=== PATIENT | male | born 1960 ===

== ENCOUNTER 2019-06-26 19:01 | Inpatient (IN) | payer MEDICARE ==
[2019-06-26 20:09] LABS: Calcium 9.3 mg/dL (8.4-10.2)
[2019-06-26 20:10] LABS: Basophils # (Auto) 0.1 K/mm3 (0.0-0.1); Basophils % (Auto) 0.7 % (0.0-1.8); Eosinophils # (Auto) 0.1 K/mm3 (0.0-0.4); Eosinophils % (Auto) 0.9 % (0.0-4.3); Hematocrit 33.5 % (35.5-45.6); Hemoglobin 11.5 gm/dl (11.8-15.2); Lymphocytes # (Auto) 1.1 K/mm3 (1.2-5.4); Mean Corpuscular HGB Conc 34 % (32-34); Mean Corpuscular Volume 97 fl (84-94); Monocytes # (Auto) 0.9 K/mm3 (0.0-0.8); Monocytes % (Auto) 12.2 % (0.0-7.3); Platelet Count 183 K/mm3 (140-440); Red Blood Count 3.45 M/mm3 (3.65-5.03); Red Cell Distribution Width 13.9 % (13.2-15.2)
[2019-06-26] MEDS ORDERED: SODIUM CHLORIDE 0.9% 1000 ML 1,000 ML IV ONE (20:23)
--- NOTE | 2019-06-26 21:02 | Emergency Department Report ---
ED Recheck HPI - General Chief Complaint: Recheck/Abnormal Lab/Rx Stated Complaint: LABS Time Seen by Provider: 06/26/19 20:08 Source: patient, EMS Mode of arrival: Stretcher Limitations: No Limitations - History of Present Illness Initial Comments: 59-year-old male with history of schizophrenia, bipolar disorder, enlarged liver, COPD, presents from [facility] today for abnormal labs. Patient reportedly had elevated potassium on labs that were done yesterday. Patient denies any history of kidney disease. Patient is currently at [facility] for suicidal ideation without attempt. MD Complaint: abnormal lab -: days(s) (1) Returns Today for: CBOAL Description of Abnormal Result: elevated potassium Associated Symptoms: none. denies: shortness of breath - Related Data Home Medications Medication Instructions Recorded Confirmed Last Taken ALPRAZolam [Xanax TAB] 1 mg PO DAILY 06/27/19 06/27/19 Unknown Escitalopram [Lexapro] 20 mg PO DAILY 06/27/19 06/27/19 Unknown Finasteride 5 mg PO DAILY 06/27/19 06/27/19 Unknown Ibuprofen [Motrin] 600 mg PO Q8H PRN 06/27/19 06/27/19 Unknown Losartan [Cozaar] 50 mg PO QDAY 06/27/19 06/27/19 Unknown Tamsulosin [Flomax] 0.4 mg PO DAILY 06/27/19 06/27/19 Unknown oxyCODONE [roxiCODONE] 5 mg PO Q4HR PRN 06/27/19 06/27/19 Unknown Allergies Allergy/AdvReac Type Severity Reaction Status Date / Time No Known Allergies Allergy Unverified 06/26/19 19:06 ED Review of Systems ROS: Stated complaint: LABS Other details as noted in HPI Comment: All other systems reviewed and negative Constitutional: denies: fever Respiratory: denies: shortness of breath Gastrointestinal: denies: nausea, vomiting ED Past Medical Hx - Past Medical History Previous Medical History?: Yes Hx Hypertension: Yes Hx Diabetes: Yes Hx Liver Disease: Yes (Hep B and C) Hx Psychiatric Treatment: Yes (schizophrenia, bipolar, depression) Hx COPD: Yes Additional medical history: parkinsons, prostate cancer, OA, fused vertebra, - Surgical History Past Surgical History?: Yes Additional Surgical History: spinal fusion - Social History Smoking Status: Current Every Day Smoker - Medications Home Medications: Home Medications Medication Instructions Recorded Confirmed Last Taken Type ALPRAZolam [Xanax TAB] 1 mg PO DAILY 06/27/19 06/27/19 Unknown History Escitalopram [Lexapro] 20 mg PO DAILY 06/27/19 06/27/19 Unknown History Finasteride 5 mg PO DAILY 06/27/19 06/27/19 Unknown History Ibuprofen [Motrin] 600 mg PO Q8H PRN 06/27/19 06/27/19 Unknown History Losartan [Cozaar] 50 mg PO QDAY 06/27/19 06/27/19 Unknown History Tamsulosin [Flomax] 0.4 mg PO DAILY 06/27/19 06/27/19 Unknown History oxyCODONE [roxiCODONE] 5 mg PO Q4HR PRN 06/27/19 06/27/19 Unknown History ED Physical Exam - General Limitations: No Limitations General appearance: alert, in no apparent distress - Head Head exam: Present: atraumatic, normocephalic - Eye Eye exam: Present: normal appearance - ENT ENT exam: Present: mucous membranes moist - Neck Neck exam: Present: other (webbed-neck appearance) - Respiratory Respiratory exam: Present: normal lung sounds bilaterally. Absent: respiratory distress - Cardiovascular Cardiovascular Exam: Present: regular rate, normal rhythm - GI/Abdominal GI/Abdominal exam: Present: soft. Absent: distended - Extremities Exam Extremities exam: Present: normal inspection, other (trace edema BLE) - Neurological Exam Neurological exam: Present: alert, oriented X3 - Psychiatric Psychiatric exam: Present: normal affect, normal mood - Skin Skin exam: Present: warm, dry, intact, normal color ED Course - Consultations Consultation #1: 06/26/19 21:29 Spoke w/ Dr Delgadillo, car body mechanic. He will consult on patient. ED Recheck MDM - Differential Diagnosis hyperkalemia, ARF - Medical Decision Making 59 yo M sent to ED from [facility] for elevated hyperkalemia. Potassium here is 5.3, 5.5 on repeat. Pt also has some renal insufficiency with BUN and Cr of 42 and 1.4. IV fluids given. Hyperkalemia treatment given. EKG is normal. Nephrology has been consulted. Will admit to hospitalist for further evaluation. Critical Care Time: Yes Critical care time in (mins) excluding proc time.: 35 Critical care attestation.: If time is entered above; I have spent that time in minutes in the direct care of this critically ill patient, excluding procedure time. Critical Care Time: 35 minutes ED Disposition Clinical Impression: Acute renal failure, Hyperkalemia Disposition: OP ADMIT IP TO THIS HOSP Is pt being admited?: Yes Condition: Stable Time of Disposition: 21:27
[2019-06-26] MEDS ORDERED: DEXTROSE 50% IN WATER (25GM) 50 ML SYRINGE IV ONE (21:25)
[2019-06-26] MEDS ORDERED: INSULIN REGULAR, HUMAN 100 UNITS/1 ML IV ONE (21:25)
[2019-06-26] MEDS ORDERED: SODIUM POLYSTYRENE 15 GM/60 ML ORAL LIQD PO ONE (21:26)
[2019-06-26] MEDS ORDERED: CALCIUM GLUCONATE 1,000 MG in SODIUM CHLORIDE 0.9% 100 ML IV ONE (21:26)
[2019-06-26] MEDS ORDERED: ACETAMINOPHEN 325 MG TAB PO PRN (22:21)
[2019-06-26] MEDS ORDERED: DEXTROSE 50% IN WATER (25GM) 50 ML SYRINGE IV PRN (22:21)
[2019-06-26] MEDS ORDERED: ONDANSETRON 4 MG/2 ML INJ IV PRN (22:21)
--- NOTE | 2019-06-26 22:24 | History and Physical Report ---
History of Present Illness Date of examination: 06/26/19 History of present illness: 59 -year-old man history of COPD, Parkinson's, prostate cancer, hypertension, diabetes, paranoid schizophrenia, hyperlipidemia, JACKIE was sent from [facility] for abnormal labs. His potassium was found to be elevated and also his renal funct ion. Patient has been at [facility] for the last 2 weeks for suicidal ideations, he still has suicidal ideations but no plans Review Of Systems: Constitutional: no weight loss, fever, chills Ears, eyes, nose, mouth and throat: no nasal congestion, no nasal discharge, no sinus pressure, blurry vision, diplopia Neck: No neck pain or rigidity. Cardiovascular: No palpitations, chest pain Respiratory: No shortness of breath, cough Gastrointestinal: No hematochezia, abdominal pain Genitourinary : no dysuria, frequency Musculoskeletal: no muscle ache , joint pain Integumentary: no rash, no pruritis Neurological: no parathesias, focal weakness Endocrine: no cold or heat intolerance, no polyuria or polydipsia Hematologic/Lymphatic: no easy bruising, no easy bleeding, no gland swelling Allergic/Immunologic: no urticaria, no angioedema. PAST MEDICAL HISTORY: COPD, Parkinson's, prostate cancer, hypertension, diabetes, paranoid schizophrenia, hyperlipidemia, JACKIE PAST SURGICAL HISTORY: Spinal fusion, knee SOCIAL HISTORY: Denies alcohol, tobacco, drugs FAMILY HISTORY: Hypertension Medications and Allergies Allergies Allergy/AdvReac Type Severity Reaction Status Date / Time No Known Allergies Allergy Unverified 06/26/19 19:06 Home Medications Medication Instructions Recorded Confirmed Last Taken Type ALPRAZolam [Xanax TAB] 1 mg PO DAILY 06/27/19 06/27/19 Unknown History Escitalopram [Lexapro] 20 mg PO DAILY 06/27/19 06/27/19 Unknown History Finasteride 5 mg PO DAILY 06/27/19 06/27/19 Unknown History Losartan [Cozaar] 50 mg PO QDAY 06/27/19 06/27/19 Unknown History Tamsulosin [Flomax] 0.4 mg PO DAILY 06/27/19 06/27/19 Unknown History oxyCODONE [roxiCODONE] 5 mg PO Q4HR PRN 06/27/19 06/27/19 Unknown History Exam - Physical Exam Narrative exam: Gen. appearance: Patient lying in bed, no apparent distress HEENT: Normocephalic, atraumatic, pupils equally round and reactive to light, extraocular movement intact, and no sclericterus,. No JVD or thyromegaly or nodule,neck supple, no carotid bruit ,mucous membranes moist, no exudate or erythema Heart: S1, S2, regular rate and rhythm Lungs: Clear bilaterally, breathing comfortable Abdomen: Positive bowel sounds, nontender, nondistended, no organomegaly Extremity: no edema, cyanosis, clubbing Skin: No rash, nodules, warm, dry Neuro: speech is fluent, moves extremities, sensory intact Results - Labs CBC & Chem 7: 06/28/19 09:13 06/28/19 06:09 Labs: Abnormal lab results 06/26/19 06/26/19 06/26/19 Range/Units 19:43 19:43 20:45 RBC 3.45 L (3.65-5.03) M/mm3 Hgb 11.5 L (11.8-15.2) gm/dl Hct 33.5 L (35.5-45.6) % MCV 97 H (84-94) fl MCH 33 H (28-32) pg [place] % (Auto) 12.2 H (0.0-7.3) % Lymph # 1.1 L (1.2-5.4) K/mm3 [place] # 0.9 H (0.0-0.8) K/mm3 Seg Neutrophils % 71.2 H (40.0-70.0) % Potassium 5.3 H 5.5 H (3.6-5.0) mmol/L BUN 42 H (9-20) mg/dL Glucose 109 H (75-100) mg/dL Assessment and Plan Assessment Acute renal insufficiency/hyperkalemia most likely secondary to meds Status post cocktail for hyperkalemia Start IV fluids, follow potassium Renal was consulted to the patient COPD, Stable Diabetes Check fingersticks and initiate insulin sliding scale Restart his medications once reconciled Hypertension IV hydralazine as needed for control Restart outpatient medications Schizophrenia, bipolar stable
[2019-06-27] MEDS: SODIUM CHLORIDE 0.45% 1000 ML 1,000 ML IV SCH ×2 (03:16→22:48)
[2019-06-27 06:16] LABS: Basophils % (Auto) 0.4 % (0.0-1.8); Eosinophils % (Auto) 0.2 % (0.0-4.3); Hematocrit 30.6 % (35.5-45.6); Hemoglobin 10.5 gm/dl (11.8-15.2); Lymphocytes # (Auto) 0.8 K/mm3 (1.2-5.4); Lymphocytes % (Auto) 12.9 % (13.4-35.0); Mean Corpuscular HGB Conc 34 % (32-34); Mean Corpuscular Volume 98 fl (84-94); Monocytes # (Auto) 0.8 K/mm3 (0.0-0.8); Monocytes % (Auto) 12.5 % (0.0-7.3); Platelet Count 159 K/mm3 (140-440); Red Blood Count 3.14 M/mm3 (3.65-5.03); Red Cell Distribution Width 13.8 % (13.2-15.2)
[2019-06-27 06:30] LABS: BUN/Creatinine Ratio 32; Blood Urea Nitrogen 35 mg/dL (9-20); Hemolysis Index 0
[2019-06-27] MEDS: INSULIN LISPRO 100 UNIT/ML SUB-Q SCH ×3 (08:54→17:36)
[2019-06-27] MEDS: ENOXAPARIN 40 MG/0.4 ML INJ SUB-Q SCH (09:53)
[2019-06-27] MEDS ORDERED: FLU VACC QUAD 2019-20 (3 YR UP)/PF 60 MCG/0.5 ML SYRINGE IM ONE (12:00)
--- NOTE | 2019-06-27 18:04 | Progress Note ---
Assessment and Plan Assessment and plan: Patient is 59 yo man from [facility] with a history of COPD, Parkinson's, prostate cancer, hypertension, diabetes, paranoid schizophrenia, hyperlipidemia and JACKIE was sent from [facility] for abnormal labs. His potassium was found to be mildly elevated and also his renal function. Patient has been at [facility] for the last 2 weeks for suicidal ideations, he still has suicidal ideations but no plans. ARF, vasomotor nephropathy, poa: treated with IVF, recheck bmp Hyperkalemia: treated with kayexalate, repeat levels H/o COPD, Stable Type 2 DM: Check fingersticks and initiate insulin sliding scale Hypertension: low salt diet, IV hydralazine as needed for control Schizophrenia, bipolar stable, SI: 1013, consulted Mental health DVT ppx on lovenox Disposition: continue inpatient care, if bmp stable d/c back to [facility] tomorrow History Interval history: Patient was seen and examined. Follow-up on current diagnosis ARF. No overnight events reported to me. Patient denies any chest pain, shortness breath, nausea/vomiting or severe headaches. Imaging, nursing note, chart, labs and old chart reviewed. Discussed with patient. Hospitalist Physical - Physical exam Narrative exam: Gen: WDWN, NAD, Awake, Alert, Orientated HEENT: NCAT, EOMI, PERRL, OP Clear Neck:>fused neck CVS/Heart: RRR, normal S1S2, pulses present bilaterally Chest/Lungs: CTA B, Symmetrical chest expansion, good air entry bilaterally GI/Abdomen: soft, NTND, good bowel sounds, no guarding or rebound /Bladder: no suprapubic tenderness, no CVA or paraspinal tenderness Extermity/Skin: no c/c/e, no obvious rash MSK: FROM x 4 Neuro: CN 2-12 grossly intact, no new focal deficits Psych: calm - Constitutional Vitals: Temp Pulse Resp BP Pulse Ox 98.1 F 73 18 130/71 95 06/27/19 17:31 06/27/19 17:31 06/27/19 17:31 06/27/19 17:31 06/27/19 17:31 Results - Labs CBC & Chem 7: 06/27/19 05:49 06/27/19 05:49 Labs: Laboratory Last Values WBC 6.4 K/mm3 (4.5-11.0) 06/27/19 05:49 RBC 3.14 M/mm3 (3.65-5.03) L 06/27/19 05:49 Hgb 10.5 gm/dl (11.8-15.2) L 06/27/19 05:49 Hct 30.6 % (35.5-45.6) L 06/27/19 05:49 MCV 98 fl (84-94) H 06/27/19 05:49 MCH 34 pg (28-32) H 06/27/19 05:49 MCHC 34 % (32-34) 06/27/19 05:49 RDW 13.8 % (13.2-15.2) 06/27/19 05:49 Plt Count 159 K/mm3 (140-440) 06/27/19 05:49 Lymph % (Auto) 12.9 % (13.4-35.0) L 06/27/19 05:49 [place] % (Auto) 12.5 % (0.0-7.3) H 06/27/19 05:49 Eos % (Auto) 0.2 % (0.0-4.3) 06/27/19 05:49 Baso % (Auto) 0.4 % (0.0-1.8) 06/27/19 05:49 Lymph # 0.8 K/mm3 (1.2-5.4) L 06/27/19 05:49 [place] # 0.8 K/mm3 (0.0-0.8) 06/27/19 05:49 Eos # 0.0 K/mm3 (0.0-0.4) 06/27/19 05:49 Baso # 0.0 K/mm3 (0.0-0.1) 06/27/19 05:49 Seg Neutrophils % 74.0 % (40.0-70.0) H 06/27/19 05:49 Seg Neutrophils # 4.7 K/mm3 (1.8-7.7) 06/27/19 05:49 Sodium 140 mmol/L (137-145) 06/27/19 05:49 Potassium 4.8 mmol/L (3.6-5.0) 06/27/19 05:49 Chloride 106.4 mmol/L (98-107) 06/27/19 05:49 Carbon Dioxide 20 mmol/L (22-30) L 06/27/19 05:49 Anion Gap 18 mmol/L 06/27/19 05:49 BUN 35 mg/dL (9-20) H 06/27/19 05:49 Creatinine 1.1 mg/dL (0.8-1.5) 06/27/19 05:49 Estimated GFR > 60 ml/min 06/27/19 05:49 BUN/Creatinine Ratio 32 % 06/27/19 05:49 Glucose 96 mg/dL (75-100) 06/27/19 05:49 POC Glucose 107 (70-105) H 06/27/19 16:41 Calcium 9.0 mg/dL (8.4-10.2) 06/27/19 05:49 Total Bilirubin 0.20 mg/dL (0.1-1.2) 06/26/19 19:43 AST 33 units/L (5-40) 06/26/19 19:43 ALT 30 units/L (7-56) 06/26/19 19:43 Alkaline Phosphatase 43 units/L (35-129) 06/26/19 19:43 Total Protein 6.9 g/dL (6.3-8.2) 06/26/19 19:43 Albumin 4.0 g/dL (3.9-5) 06/26/19 19:43 Albumin/Globulin Ratio 1.4 % 06/26/19 19:43 Active Medications - Current Medications Current Medications: Generic Name Dose Route Start Last Admin Trade Name Freq PRN Reason Stop Dose Admin Acetaminophen 650 mg 06/26/19 22:21 Tylenol PO Q4H PRN Pain MILD(1-3)/Fever >100.5/ARANDA Dextrose 0 ml 06/26/19 22:21 D50w (25gm) Syringe IV Q30MIN PRN Hypoglycemia Protocol Enoxaparin Sodium 40 mg 06/27/19 10:00 06/27/19 09:53 Enoxaparin SUB-Q 40 mg QDAY DELIA Administration Sodium Chloride 1,000 mls @ 100 mls/hr 06/26/19 23:00 06/27/19 03:16 Nacl 0.45% 1000 Ml IV 100 mls/hr DIRECT DELIA Administration Insulin Human Lispro 0 unit 06/27/19 07:30 06/27/19 17:36 Humalog SUB-Q Not Given ACHS [facility] Protocol Ondansetron HCl 4 mg 06/26/19 22:21 Zofran IV Q8H PRN Nausea And Vomiting Sodium Chloride 10 ml 06/27/19 10:00 06/27/19 09:53 Sodium Chloride Flush Syringe 10 Ml IV 10 ml BID DELIA Administration Sodium Chloride 10 ml 06/26/19 22:21 Sodium Chloride Flush Syringe 10 Ml IV PRN PRN LINE FLUSH Nutrition/Malnutrition Assess - Dietary Evaluation Nutrition/Malnutrition Findings: Nutrition Notes Start: 06/27/19 11:33 Freq: Status: Active Protocol: Document 06/27/19 11:33 PS (Rec: 06/27/19 12:16 PS [email or web address]) Co-Sign 06/27/19 11:33 KH Nutrition Notes Need for Assessment generated from: MD Order Initial or Follow up Assessment Current Diagnosis COPD,Diabetes,Hypertension, Hyperlipidemia Other Pertinent Diagnosis Parkinsons, schizophrenia Current Diet Cardiac/Consistent Carbohydrate Diet Labs/Tests BUN 35 Pertinent Medications Zofran Humalog Height 5 ft 4 in Weight 69.5 kg Usual Body Weight 100 kg [place] Body Weight (kg) 59.09 BMI 26.3 Intake Prior to Admission Poor Weight change and time frame 69 lbs in 3 months Weight Status Appropriate Subjective/Other Information Pt consulted for poor oral intake and ONS. Pt. stated he has been eating 50% of his normal diet for 3 months COLLATOR d /t limitied food access in household. Pt. presented with clavical wasting. Pt. ate 50% of his breakfast and drank 100 % of his glucerna chocolate shake. Burn Absent Trauma Absent GI Symptoms None Current % PO Fair (50-74%) Minimum of two criteria Yes Energy Intake (severe) < or equal to 50% Estimated Energy Requirement > or equal to 5 days Interpretation of Weight Loss (severe) >7.5% in 3 months Muscle Mass Mild Depletion (non-severe) #1 Nutrition Diagnosis Malnutrition Etiology limited food access and Parkinsons As Evidenced by Signs and Symptoms < or equal to 50% of EER for > or equal to 5 days, clavical wasting, and >7.5% wt loss in 3 months Is patient on ventilator? No Is Patient Ambulatory and/or Out of Bed Yes REE-([place]-St. Jeor-ambulatory/OOB) [ 1840.800 [id number]] Calculation Used for Recommendations Pauline Velasquez Additional Notes Pro: 83 - 104 g (1.2-1.5 g/kg) Fluid: 1 ml/kcal Nutrition Intervention Change Diet Order: Continue Current Diet Add Supplement/Snack (indicate name/kcal Glucerna Chocolate BID /protein ) Provides kCal: 440 Provides Protein (gm) 20 Goal #1 Meet 75% energy/protein needs Anticipated Discharge Needs: Cardiac/Consistent CHO Diet Follow-Up By: 07/02/19 Additional Comments F/U for PO/ONS intakes
--- NOTE | 2019-06-27 19:13 | Consultation ---
History of Present Illness - Reason for Consult Consult date: 06/27/19 acute renal failure, hyperkalemia Requesting physician: TIFFANIE [facility] - History of Present Illness 59 -year-old man history of COPD, Parkinson's, prostate cancer, hypertension, diabetes, paranoid schizophrenia, hyperlipidemia, obstructive sleep apnea syndrome was sent from [facility] [facility] for abnormal labs. His potassium was found to be elevated and kidney function abnormal. Patient has been at [facility] for the last 2 weeks for suicidal ideations, he still has suicidal ideations but no plans. Patient admits to nausea vomiting and diarrhea. He is a poor historian. Patient was on ibuprofen and losartan prior to admission. Past History Past Medical History: cancer (prostate), hepatitis (B and C per Patient), hypertension, other (anxiety and depression, Parkinson disease) Past Surgical History: appendectomy, Other (knee surgery, tibiofibular surgery) Social history: smoking (1 pack per day). denies: alcohol abuse, prescription drug abuse, IV drug use Family history: other (father in a motor vehicle accident. Mother of pulmonary embolism. He has no siblings only stepsiblings and he does not know of their medical problems.) Medications and Allergies Allergies Allergy/AdvReac Type Severity Reaction Status Date / Time No Known Allergies Allergy Unverified 06/26/19 19:06 Home Medications Medication Instructions Recorded Confirmed Last Taken Type ALPRAZolam [Xanax TAB] 1 mg PO DAILY 06/27/19 06/27/19 Unknown History Escitalopram [Lexapro] 20 mg PO DAILY 06/27/19 06/27/19 Unknown History Finasteride 5 mg PO DAILY 06/27/19 06/27/19 Unknown History Ibuprofen [Motrin] 600 mg PO Q8H PRN 06/27/19 06/27/19 Unknown History Losartan [Cozaar] 50 mg PO QDAY 06/27/19 06/27/19 Unknown History Tamsulosin [Flomax] 0.4 mg PO DAILY 06/27/19 06/27/19 Unknown History oxyCODONE [roxiCODONE] 5 mg PO Q4HR PRN 06/27/19 06/27/19 Unknown History Active Meds: Active Medications Acetaminophen (Tylenol) 650 mg PO Q4H PRN PRN Reason: Pain MILD(1-3)/Fever >100.5/ARANDA Dextrose (D50w (25gm) Syringe) 0 ml IV Q30MIN PRN; Protocol PRN Reason: Hypoglycemia Enoxaparin Sodium (Enoxaparin) 40 mg SUB-Q QDAY [facility] Last Admin: 06/27/19 09:53 Dose: 40 mg Documented by: Sodium Chloride (Nacl 0.45% 1000 Ml) 1,000 mls @ 100 mls/hr IV DIRECT [facility] Last Admin: 06/27/19 03:16 Dose: 100 mls/hr Documented by: Insulin Human Lispro (Humalog) 0 unit SUB-Q ACHS [facility]; Protocol Last Admin: 06/27/19 17:36 Dose: Not Given Documented by: Ondansetron HCl (Zofran) 4 mg IV Q8H PRN PRN Reason: Nausea And Vomiting Sodium Chloride (Sodium Chloride Flush Syringe 10 Ml) 10 ml IV BID [facility] Last Admin: 06/27/19 09:53 Dose: 10 ml Documented by: Sodium Chloride (Sodium Chloride Flush Syringe 10 Ml) 10 ml IV PRN PRN PRN Reason: LINE FLUSH Review of Systems All systems: negative (Constitutional: no fever but admits to chills. No anorexia or weight loss. HEENT: No sore throat but admits to sinus drainage no hearing or vision impairment . Cardiovascular: No chest pain, admits to shortness of breath. No palpitations, lower extremity swelling or dizziness. Respiratory: cough productive of greenish sputum, shortness of breath, hemoptysis or wheezing. Gastrointestinal: Admits to nausea, vomiting and di arrhea, abdominal pain, hematemesis or melena. Genitourinary: Admits to urinary frequency and urge incontinence, no dysuria or hematuria. hematologic: No abnormal bleeding or bruising. Integumentary: no pruritus or rash. Neurological: Admits to occasional headache no focal weakness or numbness, no syncope or seizures. Musculoskeletal: No joint pains no stiffness. Psychiatry: no anxiety or depression) Exam - Vital Signs Vital signs: Vital Signs Temp Pulse Resp BP Pulse Ox 98.6 F 95 H 18 121/54 90 06/27/19 02:04 06/27/19 02:04 06/27/19 02:04 06/27/19 02:04 06/27/19 02:04 - Physical Exam Narrative exam: Middle-aged male lying in bed in no acute distress HEENT: NCAT, pink oral mucous membrane Neck: Supple, no venous distention CVS: S1S2 RRR with no murmur, rub or gallop Chest: Increased anterior posterior diameter, mildly diminished breath sounds with rhonchi Abdomen: Protuberant, soft, nontender, no organomegaly, bowel sounds are present Extremities: No edema Neuro: Awake, alert no focal deficits Results - Lab Results 06/27/19 05:49 06/27/19 05:49 Most recent lab results Calcium 9.0 mg/dL (8.4-10.2) 06/27/19 05:49 Assessment and Plan - Patient Problems (1) Acute renal failure Current Visit: Yes Status: Acute Plan to address problem: Acute kidney injury probably prerenal azotemia/vasomotor nephropathy. Kidney function improving with volume repletion. Continue intravenous fluids and follow up electrolytes and renal function in the morning. (2) Hyperkalemia Current Visit: Yes Status: Acute Plan to address problem: Potassium is improved. Follow potassium in the morning (3) Essential (primary) hypertension Current Visit: Yes Status: Acute Plan to address problem: Blood Pressure is low. Hold angiotensin receptor dmitriy. If blood pressure becomes elevated, we started low-dose Norvasc or hydralazine. (4) Type 2 diabetes mellitus without complications Current Visit: Yes Status: Acute Plan to address problem: Follow blood sugar on current medications (5) Schizoaffective disorder Current Visit: Yes Status: Acute Plan to address problem: Continue management by psychiatry
[2019-06-28] MEDS ORDERED: diphenhydrAMINE 25 MG CAP PO ONE (02:04)
[2019-06-28] MEDS: INSULIN LISPRO 100 UNIT/ML SUB-Q SCH ×2 (02:47→09:47)
[2019-06-28 05:40] VITALS: BP 133/58
[2019-06-28 06:53] LABS: BUN/Creatinine Ratio 20; Blood Urea Nitrogen 22 mg/dL (9-20); Calcium 8.8 mg/dL (8.4-10.2); Hemolysis Index 5
[2019-06-28 10:20] LABS: Hematocrit 36.2 % (35.5-45.6); Hemoglobin 12.5 gm/dl (11.8-15.2); Mean Corpuscular HGB Conc 35 % (32-34); Mean Corpuscular Volume 99 fl (84-94); Platelet Count 191 K/mm3 (140-440); Red Blood Count 3.67 M/mm3 (3.65-5.03)
--- NOTE | 2019-06-28 11:05 | Progress Note ---
Assessment and Plan - Patient Problems (1) Acute renal failure Status: Acute Plan to address problem: Acute kidney injury probably prerenal azotemia/vasomotor nephropathy. Kidney function improved with volume repletion. Discontinue intravenous fluids. Okay to discharge from renal standpoint. Avoid NSAIDs (2) Hyperkalemia Status: Acute Plan to address problem: Potassium is back to normal. (3) Essential (primary) hypertension Status: Acute Plan to address problem: Follow-up blood pressure on current medications (4) Type 2 diabetes mellitus without complications Status: Acute Plan to address problem: Follow blood sugar on current medications (5) Schizoaffective disorder Status: Acute Plan to address problem: Continue management by psychiatry Subjective Date of service: 06/28/19 Principal diagnosis: acute kidney injury, hyperkalemia Interval history: Patient seen lying in bed. He has no complaints. No nausea or vomiting Objective - Exam Narrative Exam: Middle-aged male lying in bed in no acute distress HEENT: NCAT, pink oral mucous membrane Neck: Supple, no venous distention CVS: S1S2 RRR with no murmur, rub or gallop Chest: Increased anterior posterior diameter, mildly diminished breath sounds with rhonchi Abdomen: Protuberant, soft, nontender, no organomegaly, bowel sounds are present Extremities: No edema Neuro: Awake, alert no focal deficits - Vital Signs Vital signs: Vital Signs - 12hr 06/27/19 06/28/19 06/28/19 23:21 03:19 05:00 Temperature 98.8 F 97.4 F L Pulse Rate 92 H 83 Respiratory 20 20 Rate Blood Pressure 134/66 Blood Pressure 133/58 [Left] Blood Pressure 133/58 [Right] O2 Sat by Pulse 97 Oximetry 06/28/19 06/28/19 05:38 09:22 Temperature 97.4 F L Pulse Rate 87 Respiratory 20 Rate Blood Pressure 133/58 Blood Pressure [Left] Blood Pressure [Right] O2 Sat by Pulse Oximetry - Lab 06/28/19 09:13 06/28/19 06:09 Most recent lab results Calcium 8.8 mg/dL (8.4-10.2) 06/28/19 06:09 Medications & Allergies - Medications Allergies/Adverse Reactions: Allergies No Known Allergies Allergy (Unverified 06/26/19 19:06) Home Medications: Home Medications Medication Instructions Recorded Confirmed Last Taken Type ALPRAZolam [Xanax TAB] 1 mg PO DAILY 06/27/19 06/27/19 Unknown History Escitalopram [Lexapro] 20 mg PO DAILY 06/27/19 06/27/19 Unknown History Finasteride 5 mg PO DAILY 06/27/19 06/27/19 Unknown History Losartan [Cozaar] 50 mg PO QDAY 06/27/19 06/27/19 Unknown History Tamsulosin [Flomax] 0.4 mg PO DAILY 06/27/19 06/27/19 Unknown History oxyCODONE [roxiCODONE] 5 mg PO Q4HR PRN 06/27/19 06/27/19 Unknown History Active Medications: Generic Name Dose Route Start Last Admin Trade Name Freq PRN Reason Stop Dose Admin Acetaminophen 650 mg 06/26/19 22:21 Tylenol PO Q4H PRN Pain MILD(1-3)/Fever >100.5/ARANDA Dextrose 0 ml 06/26/19 22:21 D50w (25gm) Syringe IV Q30MIN PRN Hypoglycemia Protocol Enoxaparin Sodium 40 mg 06/27/19 10:00 06/27/19 09:53 Enoxaparin SUB-Q 40 mg QDAY DELIA Administration Sodium Chloride 1,000 mls @ 100 mls/hr 06/26/19 23:00 06/27/19 22:48 Nacl 0.45% 1000 Ml IV 100 mls/hr DIRECT DELIA Administration Insulin Human Lispro 0 unit 06/27/19 07:30 06/28/19 09:47 Humalog SUB-Q Not Given ACHS DELIA Protocol Ondansetron HCl 4 mg 06/26/19 22:21 Zofran IV Q8H PRN Nausea And Vomiting Sodium Chloride 10 ml 06/27/19 10:00 06/27/19 22:00 Sodium Chloride Flush Syringe 10 Ml IV 10 ml BID DELIA Administration Sodium Chloride 10 ml 06/26/19 22:21 Sodium Chloride Flush Syringe 10 Ml IV PRN PRN LINE FLUSH
[2019-06-28] MEDS: ENOXAPARIN 40 MG/0.4 ML INJ SUB-Q SCH (11:35)
--- NOTE | 2019-06-28 14:32 | Progress Note ---
Assessment and Plan Assessment and plan: Patient is 59 yo man from [facility] facility with a history of COPD, Parkinson's, prostate cancer, hypertension, diabetes, paranoid schizophrenia, hyperlipidemia and JACKIE was sent from [facility] for abnormal labs. His potassium was found to be mildly elevated and also his renal function. Patient has been at [facility] for the last 2 weeks for suicidal ideations, he still has suicidal ideations but no plans. ARF, vasomotor nephropathy, poa: treated with IVF, recheck bmp Hyperkalemia: treated with kayexalate, repeat levels H/o COPD, Stable Type 2 DM: Check fingersticks and initiate insulin sliding scale Hypertension: low salt diet, IV hydralazine as needed for control Schizophrenia, bipolar stable, SI: 1013, consulted Mental health DVT ppx on lovenox Disposition: continue inpatient care, bmp stable d/c back to [facility] History Interval history: Patient was seen and examined. Follow-up on current diagnosis ARF. No overnight events reported to me. Patient denies any chest pain, shortness breath, nausea/vomiting or severe headaches. Imaging, nursing note, chart, labs and old chart reviewed. Discussed with patient. Hospitalist Physical - Physical exam Narrative exam: Gen: WDWN, NAD, Awake, Alert, Orientated HEENT: NCAT, EOMI, PERRL, OP Clear Neck:>fused neck CVS/Heart: RRR, normal S1S2, pulses present bilaterally Chest/Lungs: CTA B, Symmetrical chest expansion, good air entry bilaterally GI/Abdomen: soft, NTND, good bowel sounds, no guarding or rebound /Bladder: no suprapubic tenderness, no CVA or paraspinal tenderness Extermity/Skin: no c/c/e, no obvious rash MSK: FROM x 4 Neuro: CN 2-12 grossly intact, no new focal deficits Psych: calm - Constitutional Vitals: Temp Pulse Resp BP Pulse Ox 97.4 F L 87 20 133/58 97 06/28/19 05:38 06/28/19 09:22 06/28/19 05:38 06/28/19 05:38 06/28/19 05:00 Results - Labs CBC & Chem 7: 06/28/19 09:13 06/28/19 06:09 Labs: Laboratory Last Values WBC 5.4 K/mm3 (4.5-11.0) 06/28/19 09:13 RBC 3.67 M/mm3 (3.65-5.03) 06/28/19 09:13 Hgb 12.5 gm/dl (11.8-15.2) 06/28/19 09:13 Hct 36.2 % (35.5-45.6) 06/28/19 09:13 MCV 99 fl (84-94) H 06/28/19 09:13 MCH 34 pg (28-32) H 06/28/19 09:13 MCHC 35 % (32-34) H 06/28/19 09:13 RDW 14.0 % (13.2-15.2) 06/28/19 09:13 Plt Count 191 K/mm3 (140-440) 06/28/19 09:13 Lymph % (Auto) 12.9 % (13.4-35.0) L 06/27/19 05:49 [place] % (Auto) 12.5 % (0.0-7.3) H 06/27/19 05:49 Eos % (Auto) 0.2 % (0.0-4.3) 06/27/19 05:49 Baso % (Auto) 0.4 % (0.0-1.8) 06/27/19 05:49 Lymph # 0.8 K/mm3 (1.2-5.4) L 06/27/19 05:49 Sutton # 0.8 K/mm3 (0.0-0.8) 06/27/19 05:49 Eos # 0.0 K/mm3 (0.0-0.4) 06/27/19 05:49 Baso # 0.0 K/mm3 (0.0-0.1) 06/27/19 05:49 Seg Neutrophils % 74.0 % (40.0-70.0) H 06/27/19 05:49 Seg Neutrophils # 4.7 K/mm3 (1.8-7.7) 06/27/19 05:49 Sodium 140 mmol/L (137-145) 06/28/19 06:09 Potassium 4.6 mmol/L (3.6-5.0) 06/28/19 06:09 Chloride 109.7 mmol/L (98-107) H 06/28/19 06:09 Carbon Dioxide 21 mmol/L (22-30) L 06/28/19 06:09 Anion Gap 14 mmol/L 06/28/19 06:09 BUN 22 mg/dL (9-20) H 06/28/19 06:09 Creatinine 1.1 mg/dL (0.8-1.5) 06/28/19 06:09 Estimated GFR > 60 ml/min 06/28/19 06:09 BUN/Creatinine Ratio 20 % 06/28/19 06:09 Glucose 89 mg/dL (75-100) 06/28/19 06:09 POC Glucose 111 (70-105) H 06/27/19 21:38 Calcium 8.8 mg/dL (8.4-10.2) 06/28/19 06:09 Total Bilirubin 0.20 mg/dL (0.1-1.2) 06/26/19 19:43 AST 33 units/L (5-40) 06/26/19 19:43 ALT 30 units/L (7-56) 06/26/19 19:43 Alkaline Phosphatase 43 units/L (35-129) 06/26/19 19:43 Total Protein 6.9 g/dL (6.3-8.2) 06/26/19 19:43 Albumin 4.0 g/dL (3.9-5) 06/26/19 19:43 Albumin/Globulin Ratio 1.4 % 06/26/19 19:43 Active Medications - Current Medications Current Medications: Generic Name Dose Route Start Last Admin Trade Name Freq PRN Reason Stop Dose Admin Acetaminophen 650 mg 06/26/19 22:21 Tylenol PO Q4H PRN Pain MILD(1-3)/Fever >100.5/ARANDA Dextrose 0 ml 06/26/19 22:21 D50w (25gm) Syringe IV Q30MIN PRN Hypoglycemia Protocol Enoxaparin Sodium 40 mg 06/27/19 10:00 06/28/19 11:35 Enoxaparin SUB-Q 40 mg QDAY DELIA Administration Sodium Chloride 1,000 mls @ 100 mls/hr 06/26/19 23:00 06/27/19 22:48 Nacl 0.45% 1000 Ml IV 100 mls/hr DIRECT DELIA Administration Insulin Human Lispro 0 unit 06/27/19 07:30 06/28/19 09:47 Humalog SUB-Q Not Given ACHS DELIA Protocol Ondansetron HCl 4 mg 06/26/19 22:21 Zofran IV Q8H PRN Nausea And Vomiting Sodium Chloride 10 ml 06/27/19 10:00 06/28/19 11:35 Sodium Chloride Flush Syringe 10 Ml IV 10 ml BID DELIA Administration Sodium Chloride 10 ml 06/26/19 22:21 Sodium Chloride Flush Syringe 10 Ml IV PRN PRN LINE FLUSH Nutrition/Malnutrition Assess - Dietary Evaluation Nutrition/Malnutrition Findings: Nutrition Notes Start: 06/27/19 11:33 Freq: Status: Active Protocol: Document 06/27/19 11:33 PS (Rec: 06/27/19 12:16 PS [id number]) Co-Sign 06/27/19 11:33 KH Nutrition Notes Need for Assessment generated from: MD Order Initial or Follow up Assessment Current Diagnosis COPD,Diabetes,Hypertension, Hyperlipidemia Other Pertinent Diagnosis Parkinsons, schizophrenia Current Diet Cardiac/Consistent Carbohydrate Diet Labs/Tests BUN 35 Pertinent Medications Zofran Humalog Height 5 ft 4 in Weight 69.5 kg Usual Body Weight 100 kg [place] Body Weight (kg) 59.09 BMI 26.3 Intake Prior to Admission Poor Weight change and time frame 69 lbs in 3 months Weight Status Appropriate Subjective/Other Information Pt consulted for poor oral intake and ONS. Pt. stated he has been eating 50% of his normal diet for 3 months [employer]IE[employer] d /t limitied food access in household. Pt. presented with clavical wasting. Pt. ate 50% of his breakfast and drank 100 % of his glucerna chocolate shake. Burn Absent Trauma Absent GI Symptoms None Current % PO Fair (50-74%) Minimum of two criteria Yes Energy Intake (severe) < or equal to 50% Estimated Energy Requirement > or equal to 5 days Interpretation of Weight Loss (severe) >7.5% in 3 months Muscle Mass Mild Depletion (non-severe) #1 Nutrition Diagnosis Malnutrition Etiology limited food access and Parkinsons As Evidenced by Signs and Symptoms < or equal to 50% of EER for > or equal to 5 days, clavical wasting, and >7.5% wt loss in 3 months Is patient on ventilator? No Is Patient Ambulatory and/or Out of Bed Yes REE-([facility]-ambulatory/OOB) [ 1840.800 [id number]] Calculation Used for Recommendations [facility] Additional Notes Pro: 83 - 104 g (1.2-1.5 g/kg) Fluid: 1 ml/kcal Nutrition Intervention Change Diet Order: Continue Current Diet Add Supplement/Snack (indicate name/kcal Glucerna Chocolate BID /protein ) Provides kCal: 440 Provides Protein (gm) 20 Goal #1 Meet 75% energy/protein needs Anticipated Discharge Needs: Cardiac/Consistent CHO Diet Follow-Up By: 07/02/19 Additional Comments F/U for PO/ONS intakes
--- NOTE | 2019-06-28 14:36 | Discharge Summary ---
Providers - Providers Date of Admission: 06/26/19 22:21 Date of discharge: 06/28/19 Attending physician: EMA ROBERSON 06/26/19 21:28 Consult to Physician [CONS] Stat Comment: Dr. Atkinson spoke with Dr. 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 His potassium was found to be mildly elevated and also his renal function. Patient has been at [facility] for the last 2 weeks for suicidal ideation, he still has suicidal ideation but no plans. Discharge Diagnoses ARF, vasomotor nephropathy, poa: resolved Hyperkalemia: treated with kayexalate, resolved H/o COPD, Stable Type 2 DM: Check fingersticks and initiate insulin sliding scale Hypertension: stable, low salt diet, IV hydralazine as needed for control Schizophrenia, bipolar stable, SI: 1013, consulted Mental health DVT ppx on lovenox Disposition: continue inpatient care, bmp stable d/c back to [facility] Disposition: DC/TX-[facility] H[facility]/PSY UNIT Time spent for discharge: 31 mintues Core Measure Documentation - Palliative Care Palliative Care/ Comfort Measures: Not Applicable - Core Measures Any of the following diagnoses?: none - VTE Discharge Requirements Deep Vein Thrombosis/Pulmonary Embolism Present on Admission: No Has pt received <5 days of overlap therapy or INR<2.0: No Anticoagulant overlap therapy prescribed at discharge: No Contraindication No Overlap Therapy order at DC: Not Indicated Exam - Physical Exam Narrative exam: Gen: WDWN, NAD, Awake, Alert, Orientated HEENT: NCAT, EOMI, PERRL, OP Clear Neck:>fused neck CVS/Heart: RRR, normal S1S2, pulses present bilaterally Chest/Lungs: CTA B, Symmetrical chest expansion, good air entry bilaterally GI/Abdomen: soft, NTND, good bowel sounds, no guarding or rebound /Bladder: no suprapubic tenderness, no CVA or paraspinal tenderness Extermity/Skin: no c/c/e, no obvious rash MSK: FROM x 4 Neuro: CN 2-12 grossly intact, no new focal deficits Psych: calm - Constitutional Vitals: Temp Pulse Resp BP Pulse Ox 97.4 F L 87 20 133/58 97 06/28/19 05:38 06/28/19 09:22 06/28/19 05:38 06/28/19 05:38 06/28/19 05:00 Plan Activity: other (no strenous activity) Diet: renal Special Instructions: smoking cessation Follow up with: PRIMARY CARE, [Primary Care Provider] - 3-5 Days Forms: Discharge Signature Page
== END 2019-06-28 15:00 | DRG 640 ==
LOC: ED 19:01 → 4A 22:21
PROVIDERS: ADMIT Internal Medicine; ATTEND Internal Medicine
DX: E87.5 Hyperkalemia (principal); N17.0 Acute kidney failure with tubular necrosis; F20.0 Paranoid schizophrenia; E11.9 Type 2 diabetes mellitus without complications; I10 Essential (primary) hypertension; G20 Parkinson's disease; G47.33 Obstructive sleep apnea (adult) (pediatric); J44.9 Chronic obstructive pulmonary disease, unspecified; F17.210 Nicotine dependence, cigarettes, uncomplicated; C61 Malignant neoplasm of prostate; Z79.01 Long term (current) use of anticoagulants; Z71.6 Tobacco abuse counseling; Z79.899 Other long term (current) drug therapy; Z79.84 Long term (current) use of oral hypoglycemic drugs; Z98.1 Arthrodesis status; Z82.49 Family history of ischemic heart disease and other diseases of the circulatory system; Z90.49 Acquired absence of other specified parts of digestive tract
CPT/HCPCS: 36415; 80048; 80053; 82962; 84132; 85025; 85027; 87116; 90686; 93005; 93010; 96360; 99406; G0378; J0610; J1650; J1815; J7030

== ENCOUNTER 2019-08-26 16:02 | Emergency (ER) | payer BC, MEDICARE ==
[2019-08-26] MEDS ORDERED: ALBUTEROL 2.5 MG/3 ML NEBU IH ONE (18:19)
[2019-08-26] MEDS ORDERED: IPRATROPIUM 0.02% NEBU 2.5 ML IH ONE (18:19)
--- NOTE | 2019-08-26 18:21 | Emergency Department Report ---
Blank Doc - Documentation Documentation: 59-year-old male that presents wheezing and SOB with cough. This initial assessment/diagnostic orders/clinical plan/treatment(s) is/are subject to change based on patient's health status, clinical progression and re- assessment by fellow clinical providers in the ED. Further treatment and workup at subsequent clinical providers discretion. Patient/guardians urged not to elope from the ED as their condition may be serious if not clinically assessed and managed. Initial orders include: 1- Patient sent to [facility] for further evaluation and treatment 2- breathing treatment 3- CXR
--- NOTE | 2019-08-26 19:02 | XRay Report ---
CHEST 2 VIEWS INDICATION: sob/wheezing/cough. COMPARISON: None FINDINGS: Support devices: None. Marked deformity of the thoracic cage is present questionable congenital versus posttraumatic postsur gical. Heart: Within normal limits. Lungs: Bronchovascular markings are prominent throughout both lungs. Pleura: No significant pleural effusion. No pneumothorax. Additional findings: None. IMPRESSION: 1. No acute findings. Please see comments Signer Name: Leandro Collado MD Signed: 08/26/2019 6:58 PM Workstation Name: [id number]
[2019-08-26] MEDS ORDERED: predniSONE 20 MG TAB PO ONE (19:56)
[2019-08-26] MEDS ORDERED: guaiFENesin 100 MG/5 ML ORAL LIQD PO ONE (19:56)
--- NOTE | 2019-08-26 20:02 | Emergency Department Report ---
Minor Respiratory - HPI Chief Complaint: Upper Respiratory Infection Stated Complaint: PNEUMONIA Time Seen by Provider: 08/26/19 18:19 Duration: 4 Days Severity: mild Minor Respiratory: Yes Able to Tolerate Fluids, Yes Cough, No Rhinorrhea, No Sore Throat, No Ear Pain, No Sick Contacts, No Hemoptysis, No Chest Pain, No Shortness of Breath, No Fever Other History: This is a 59-year-old male who presents the ED complaining of intermittent coughing dry nonproductive for the past 4 days. Patient states that he resides at a senior care and is currently out of his medications. Patient states he takes medications for Parkinson's, diabetes, depression, hypertension and also has a history of COPD. ED Review of Systems ROS: Stated complaint: PNEUMONIA Other details as noted in HPI Comment: All other systems reviewed and negative ED Past Medical Hx - Past Medical History Previous Medical History?: Yes Hx Hypertension: Yes Hx Diabetes: Yes Hx Liver Disease: Yes (Hep B and C) Hx Psychiatric Treatment: Yes (schizophrenia, bipolar, depression) Hx COPD: Yes Additional medical history: parkinsons, prostate cancer, OA, fused vertebra, - Surgical History Past Surgical History?: Yes Additional Surgical History: spinal fusion - Social History Smoking Status: Current Every Day Smoker Substance Use Type: None - Medications Home Medications: Home Medications Medication Instructions Recorded Confirmed Last Taken Type ALPRAZolam [Xanax TAB] 1 mg PO DAILY 06/27/19 06/27/19 Unknown History Escitalopram [Lexapro] 20 mg PO DAILY 06/27/19 06/27/19 Unknown History Finasteride 5 mg PO DAILY 06/27/19 06/27/19 Unknown History Losartan [Cozaar] 50 mg PO QDAY 06/27/19 06/27/19 Unknown History Tamsulosin [Flomax] 0.4 mg PO DAILY 06/27/19 06/27/19 Unknown History oxyCODONE [roxiCODONE] 5 mg PO Q4HR PRN 06/27/19 06/27/19 Unknown History Albuterol INH(or & Nicu Only) 2 puff IH QID PRN #8.5 gram 08/26/19 Unknown Rx [ProAir HFA Inhaler] Benzonatate [Tessalon Perles] 100 mg PO Q8HR #20 capsule 08/26/19 Unknown Rx Minor Respiratory Exam - Exam General: Vital signs noted. No distress. Alert and acting appropriately. HEENT: Yes Moist Mucous Membranes, No Pharyngeal Erythema, No Pharyngeal Exudates, No Rhinorrhea, No Conjuctival Injection, No Frontal Tenderness, No Maxillary Tenderness Ear: Neither TM Bulge, Neither TM Erythema, Neither EAC Pain, Neither EAC Discharge Neck: Yes Supple, No Adenopathy Lungs: Yes Good Air Exchange, No Wheezes, No Ronchi, No Stridor, No Cough, No Labored Respirations, No Retractions, No Use of Accessory Muscles, No Other Abnormal Lung Sounds Heart: Yes Regular, No Murmur Abdomen: Yes Normal Bowel Sounds, No Tenderness, No Peritoneal Signs Skin: No Rash, No Edema Neurologic: Alert and oriented, no deficits. Musculoskeletal: Unremarkable. ED Course Vital Signs 08/26/19 18:17 Temperature 99.1 F Pulse Rate 91 H Respiratory 24 Rate Blood Pressure 170/86 O2 Sat by Pulse 94 Oximetry ED Medical Decision Making - Radiology Data Radiology results: report reviewed, image reviewed CHEST 2 VIEWS INDICATION: sob/wheezing/cough. COMPARISON: None FINDINGS: Support devices: None. Marked deformity of the thoracic cage is present questionable congenital versus posttraumatic postsurgical. Heart: Within normal limits. Lungs: Bronchovascular markings are prominent throughout both lungs. Pleura: No significant pleural effusion. No pneumothorax. Additional findings: None. IMPRESSION: 1. No acute findings. Please see comments Signer Name: Leandro Collado MD Signed: 08/26/2019 6:58 PM Workstation Name: [id number] Transcribed By: WG Dictated By: Leandro Collado MD Electronically Authenticated By: Leandro Collado MD Signed Date/Time: 08/26/19 141 - Medical Decision Making 59-year-old male presents with acute bronchitis secondary to COPD exacerbation. There is no fever during the ED stay, patient does have a history of COPD. Chest x-ray shows no indications of pneumonia or any acute lung disease I discussed findings with the patient Discussed symptomatic relief with [id number] medications. Patient received breathing treatment while in the ED department. Patient also received medications for cough. Patient is in no respiratory distress Discussed follow-up with primary care physician in 2-3 days. Referral was given to patient. Discussed with patient who will be able to get his medication filled at a primary care doctor's office. Patient was unable to tell me to what medications he was taking Patient' verbally states she understands and will comply the following instructions and follow-up Vital signs stable. Patient is in no acute distress Critical care attestation.: If time is entered above; I have spent that time in minutes in the direct care of this critically ill patient, excluding procedure time. ED Disposition Clinical Impression: Bronchitis, COPD (chronic obstructive pulmonary disease) with acute bronchitis Disposition: TO HOME OR SELFCARE Is pt being admited?: No Does the pt Need Aspirin: No Condition: Stable Instructions: Acute Bronchitis (ED), Chronic Bronchitis (ED) Additional Instructions: Make sure to follow up with the primary care physician as discussed. Take all your medications as you've been prescribed. If you have any worsening symptoms or develop new symptoms please return to ED immediately. Prescriptions: Albuterol INH(or & Nicu Only) [ProAir HFA Inhaler] 2 puff IH QID PRN #8.5 gram PRN Reason: Shortness Of Breath Benzonatate [Tessalon Perles] 100 mg PO Q8HR #20 capsule Referrals: PRIMARY CAREMD [Primary Care Provider] - 3-5 Days [facility] [Outside] - 3-5 Days [facility] [Outside] - 3-5 Days BELINDA OATES MD [Staff Physician] - 3-5 Days Forms: Work/School Release Form(ED) Time of Disposition: 20:02
[2019-08-27 01:01] VITALS: BP 152/76
== END 2019-08-26 21:30 | disposition home or self-care (01) ==
LOC: ED 16:02
DX: J40 Bronchitis, not specified as acute or chronic (principal); J44.9 Chronic obstructive pulmonary disease, unspecified; I10 Essential (primary) hypertension; E11.9 Type 2 diabetes mellitus without complications; F25.0 Schizoaffective disorder, bipolar type; F17.200 Nicotine dependence, unspecified, uncomplicated; Z79.899 Other long term (current) drug therapy
CPT/HCPCS: 71046; 94644; 99284; J7512

== ENCOUNTER 2019-10-16 13:30 | Emergency (ER) | payer MEDICARE ==
[2019-10-16] MEDS ORDERED: chlordiazePOXIDE 25 MG CAP PO PRN ×2 (14:07)
[2019-10-16] MEDS ORDERED: LORazepam 2 MG TAB PO PRN (14:07)
[2019-10-16] MEDS ORDERED: NEOMY 3.5 MG/BACIT 400 UNITS/POLY B 5000 UNITS/GM OINT PACKET TP ONE (14:11)
[2019-10-16] MEDS ORDERED: TETANUS,DIPH,PERTUSS(ACELL) VACCINE 0.5 ML SYRINGE IM ONE (14:11)
--- NOTE | 2019-10-16 14:12 | Emergency Department Report ---
<LOIDA GORDON - Last Filed: 10/16/19 15:31> ED Psych HPI - General Chief Complaint: Psych Stated Complaint: SUICIDAL Time Seen by Provider: 10/16/19 14:02 Source: patient Mode of arrival: Ambulatory - History of Present Illness Initial Comments: Mr. Head is a 59-year-old male with hx of schizophrenia, bipolar disorder, hepatitis B and C, Parkinson's disease, COPD, diabetes mellitus, hypertension, polysubstance abuse who presents with suicidal ideation. He has superficial cuts to his left forearm. He also has been using drugs including metham phetamine, cocaine, ecstasy. He drinks alcohol daily. He currently does not have a plan to harm himself or others. He recently became homeless. He is no longer allowed at the transitional home. His roommate is also here in the emergency department to be evaluated. MD Complaint: suicidal ideation, feels depressed -: Gradual, days(s) (Several) Associated Psychiatric Symptoms: suicidal ideation Quality: constant Improves With: none Worsens With: none Context: recent alcohol abuse, recent drug abuse, not taking psychiatric, significant life stressor Associated Symptoms: denies other symptoms Treatments Prior to Arrival: none If Self Harm: admits thoughts of - Related Data Home Medications Medication Instructions Recorded Confirmed Last Taken ALPRAZolam [Xanax TAB] 1 mg PO DAILY 06/27/19 06/27/19 Unknown Escitalopram [Lexapro] 20 mg PO DAILY 06/27/19 06/27/19 Unknown Finasteride 5 mg PO DAILY 06/27/19 06/27/19 Unknown Losartan [Cozaar] 50 mg PO QDAY 06/27/19 06/27/19 Unknown Tamsulosin [Flomax] 0.4 mg PO DAILY 06/27/19 06/27/19 Unknown oxyCODONE [roxiCODONE] 5 mg PO Q4HR PRN 06/27/19 06/27/19 Unknown Previous Rx's Medication Instructions Recorded Last Taken Type Albuterol INH(or & Nicu Only) 2 puff IH QID PRN #8.5 gram 08/26/19 Unknown Rx [ProAir HFA Inhaler] Benzonatate [Tessalon Perles] 100 mg PO Q8HR #20 capsule 08/26/19 Unknown Rx Allergies Allergy/AdvReac Type Severity Reaction Status Date / Time No Known Allergies Allergy Unverified 06/26/19 19:06 ED Review of Systems Comment: All other systems reviewed and negative Constitutional: denies: fever, malaise Respiratory: denies: cough Cardiovascular: denies: chest pain Gastrointestinal: denies: abdominal pain, nausea, vomiting Skin: rash, lesions Psychiatric: depression ED Past Medical Hx - Past Medical History Previous Medical History?: Yes Hx Hypertension: Yes Hx Diabetes: Yes Hx Liver Disease: Yes (Hep B and C) Hx Psychiatric Treatment: Yes (schizophrenia, bipolar, depression) Hx COPD: Yes Additional medical history: parkinsons, prostate cancer, OA, fused vertebra, - Surgical History Past Surgical History?: Yes Additional Surgical History: spinal fusion - Social History Smoking Status: Current Every Day Smoker Substance Use Type: Alcohol, Cocaine, Marijuana, Methamphetamines, Other - Medications Home Medications: Home Medications Medication Instructions Recorded Confirmed Last Taken Type ALPRAZolam [Xanax TAB] 1 mg PO DAILY 06/27/19 06/27/19 Unknown History Escitalopram [Lexapro] 20 mg PO DAILY 06/27/19 06/27/19 Unknown History Finasteride 5 mg PO DAILY 06/27/19 06/27/19 Unknown History Losartan [Cozaar] 50 mg PO QDAY 06/27/19 06/27/19 Unknown History Tamsulosin [Flomax] 0.4 mg PO DAILY 06/27/19 06/27/19 Unknown History oxyCODONE [roxiCODONE] 5 mg PO Q4HR PRN 06/27/19 06/27/19 Unknown History Albuterol INH(or & Nicu Only) 2 puff IH QID PRN #8.5 gram 08/26/19 Unknown Rx [ProAir HFA Inhaler] Benzonatate [Tessalon Perles] 100 mg PO Q8HR #20 capsule 08/26/19 Unknown Rx ED Physical Exam - General Limitations: No Limitations General appearance: alert, in no apparent distress, other (Disheveled dirty clothing) - Head Head exam: Present: atraumatic, normocephalic - Eye Eye exam: Present: normal appearance - ENT ENT exam: Present: mucous membranes moist - Neck Neck exam: Present: normal inspection, full ROM - Respiratory Respiratory exam: Present: normal lung sounds bilaterally. Absent: respiratory distress, wheezes, rales, rhonchi - Cardiovascular Cardiovascular Exam: Present: normal rhythm, tachycardia, normal heart sounds. Absent: systolic murmur, diastolic murmur, rubs, gallop - GI/Abdominal GI/Abdominal exam: Present: soft, normal bowel sounds. Absent: distended, tenderness, guarding, rebound - Rectal Rectal exam: Present: deferred - Extremities Exam Extremities exam: Present: normal inspection - Neurological Exam Neurological exam: Present: alert, oriented X3 - Psychiatric Psychiatric exam: Present: depressed, flat affect - Skin Skin exam: Present: warm, dry, normal color, other (Numerous superficial abrasion excoriations linear left arm with dried blood). Absent: rash ED Medical Decision Making - Lab Data Result diagrams: 10/16/19 13:54 10/16/19 13:54 Laboratory Results - last 24 hr 10/16/19 10/16/19 10/16/19 13:54 13:54 13:54 WBC RBC Hgb Hct MCV MCH MCHC RDW Plt Count Lymph % (Auto) [place] % (Auto) Eos % (Auto) Baso % (Auto) Lymph # [place] # Eos # Baso # Seg Neutrophils % Seg Neutrophils # Sodium 137 Potassium 4.7 Chloride 100.4 Carbon Dioxide 20 L Anion Gap 21 BUN 22 H Creatinine 1.1 Estimated GFR > 60 BUN/Creatinine Ratio 20 Glucose 92 Calcium 9.5 Total Bilirubin Direct Bilirubin Indirect Bilirubin AST ALT Alkaline Phosphatase Total Protein Albumin Albumin/Globulin Ratio Urine Color Urine Turbidity Urine pH Ur Specific [place] Urine Protein Urine Glucose (UA) Urine Ketones Urine Blood Urine Nitrite Urine Bilirubin Urine Urobilinogen Ur Leukocyte Esterase Urine WBC (Auto) Urine RBC (Auto) Salicylates < 0.3 L Urine Opiates Screen Urine Methadone Screen Acetaminophen < 5.0 L Ur Barbiturates Screen Ur Phencyclidine Scrn Ur Amphetamines Screen U Benzodiazepines Scrn Urine Cocaine Screen U Marijuana (THC) Screen 10/16/19 10/16/19 10/16/19 13:54 14:04 14:31 WBC 9.3 RBC 4.72 Hgb 14.0 Hct 41.8 MCV 89 MCH 30 MCHC 34 RDW 15.3 H Plt Count 318 Lymph % (Auto) 16.4 [place] % (Auto) 7.1 Eos % (Auto) 0.1 Baso % (Auto) 0.5 Lymph # 1.5 [place] # 0.7 Eos # 0.0 Baso # 0.0 Seg Neutrophils % 75.9 H Seg Neutrophils # 7.1 Sodium Potassium Chloride Carbon Dioxide Anion Gap BUN Creatinine Estimated GFR BUN/Creatinine Ratio Glucose Calcium Total Bilirubin 0.50 Direct Bilirubin < 0.2 Indirect Bilirubin 0.3 AST 103 H ALT 69 H Alkaline Phosphatase 55 Total Protein 7.4 Albumin 4.6 Albumin/Globulin Ratio 1.6 Urine Color Yellow Urine Turbidity Clear Urine pH 5.0 Ur Specific [place] 1.013 Urine Protein <15 mg/dl Urine Glucose (UA) Neg Urine Ketones Neg Urine Blood Neg Urine Nitrite Neg Urine Bilirubin Neg Urine Urobilinogen < 2.0 Ur Leukocyte Esterase Neg Urine WBC (Auto) < 1.0 Urine RBC (Auto) < 1.0 Salicylates Urine Opiates Screen Urine Methadone Screen Acetaminophen Ur Barbiturates Screen Ur Phencyclidine Scrn Ur Amphetamines Screen U Benzodiazepines Scrn Urine Cocaine Screen U Marijuana (THC) Screen 10/16/19 14:31 WBC RBC Hgb Hct MCV MCH MCHC RDW Plt Count Lymph % (Auto) [place] % (Auto) Eos % (Auto) Baso % (Auto) Lymph # [place] # Eos # Baso # Seg Neutrophils % Seg Neutrophils # Sodium Potassium Chloride Carbon Dioxide Anion Gap BUN Creatinine Estimated GFR BUN/Creatinine Ratio Glucose Calcium Total Bilirubin Direct Bilirubin Indirect Bilirubin AST ALT Alkaline Phosphatase Total Protein Albumin Albumin/Globulin Ratio Urine Color Urine Turbidity Urine pH Ur Specific [place] Urine Protein Urine Glucose (UA) Urine Ketones Urine Blood Urine Nitrite Urine Bilirubin Urine Urobilinogen Ur Leukocyte Esterase Urine WBC (Auto) Urine RBC (Auto) Salicylates Urine Opiates Screen Presumptive negative Urine Methadone Screen Presumptive negative Acetaminophen Ur Barbiturates Screen Presumptive negative Ur Phencyclidine Scrn Presumptive negative Ur Amphetamines Screen Presumptive positive U Benzodiazepines Scrn Presumptive negative Urine Cocaine Screen Presumptive positive U Marijuana (THC) Screen Presumptive positive - Radiology Data Radiology results: report reviewed Chest radiograph: No acute findings according to radiology report - Medical Decision Making 1. Suicidal ideation without plan to harm self. Due to poor social situation will obtain mental health consultation 2. Linear superficial lacerations abrasions: Tdap booster provided as well as wound care 3. Mild tachycardia CIWA initiated, IVF hydration, with UDS screen positive for cocaine amphetamine marijuana to which the patient did subscribe, recent drug use could also explain tachycardia, 4. mild COPD exacerbation current oxygenation 95% on room air: duoneb, prednisone, doxycyline 5. Polysubstance abuse including UDS as described above as well as for alcohol level 0.12 Mr. Head is medically clear for psychiatric care. ED Disposition Clinical Impression: Suicidal ideation Disposition: [id number]/TX-65 PSY HOSP/PSY UNIT Condition: Stable Instructions: Suicide Prevention for Adults (ED) Referrals: PRIMARY CARE, [Primary Care Provider] - 3-5 Days <SOTERO PILLAI - Last Filed: 10/17/19 10:52> ED Review of Systems ROS: Stated complaint: SUICIDAL Other details as noted in HPI ED Course Vital Signs 10/16/19 10/16/19 10/16/19 13:43 14:22 14:28 Temperature 97.8 F Pulse Rate 125 H 124 H Respiratory 20 22 Rate Blood Pressure Blood Pressure 172/138 100/85 [Right] O2 Sat by Pulse 92 90 94 Oximetry 10/16/19 10/16/19 10/16/19 14:30 14:46 15:00 Temperature Pulse Rate 113 H 112 H Respiratory 26 H 19 Rate Blood Pressure 152/90 Blood Pressure [Right] O2 Sat by Pulse 94 95 94 Oximetry 10/16/19 10/16/19 10/16/19 15:16 15:30 15:46 Temperature Pulse Rate 109 H 109 H 111 H Respiratory 22 23 27 H Rate Blood Pressure 156/96 156/96 156/96 Blood Pressure [Right] O2 Sat by Pulse 95 95 94 Oximetry 10/16/19 10/16/19 10/16/19 16:00 16:16 16:30 Temperature Pulse Rate 112 H 113 H 112 H Respiratory 16 17 21 Rate Blood Pressure 156/96 135/96 135/96 Blood Pressure [Right] O2 Sat by Pulse 91 94 93 Oximetry 10/16/19 10/16/19 10/16/19 16:46 17:00 17:16 Temperature Pulse Rate 117 H 117 H 114 H Respiratory 17 25 H 18 Rate Blood Pressure 135/96 135/96 172/99 Blood Pressure [Right] O2 Sat by Pulse 95 93 91 Oximetry 10/16/19 10/16/19 10/16/19 17:30 17:46 18:00 Temperature Pulse Rate 115 H 114 H 112 H Respiratory 17 16 22 Rate Blood Pressure 172/99 172/99 186/106 Blood Pressure [Right] O2 Sat by Pulse 94 94 94 Oximetry 10/16/19 10/16/19 10/16/19 18:16 18:30 18:46 Temperature Pulse Rate 110 H 113 H 114 H Respiratory 21 20 20 Rate Blood Pressure 186/106 186/106 186/106 Blood Pressure [Right] O2 Sat by Pulse 94 95 95 Oximetry 10/16/19 10/16/19 10/16/19 19:00 19:16 19:30 Temperature Pulse Rate 111 H 113 H 117 H Respiratory 19 14 17 Rate Blood Pressure 174/107 174/107 174/107 Blood Pressure [Right] O2 Sat by Pulse 94 94 95 Oximetry 10/16/19 10/16/19 10/16/19 19:46 20:00 20:16 Temperature 98.9 F Pulse Rate 110 H 109 H 122 H Respiratory 13 20 30 H Rate Blood Pressure 174/107 190/104 190/104 Blood Pressure 176/101 [Right] O2 Sat by Pulse 95 95 95 Oximetry 10/16/19 10/16/19 10/16/19 20:19 20:30 20:46 Temperature Pulse Rate 113 H 109 H 113 H Respiratory 23 20 43 H Rate Blood Pressure 176/101 176/101 Blood Pressure 176/101 [Right] O2 Sat by Pulse 95 95 96 Oximetry 10/16/19 10/16/19 10/16/19 21:00 21:16 21:30 Temperature Pulse Rate 112 H 117 H 114 H Respiratory 24 26 H 16 Rate Blood Pressure 178/96 178/96 178/96 Blood Pressure [Right] O2 Sat by Pulse 95 97 95 Oximetry 10/16/19 10/16/19 10/16/19 21:46 22:00 22:16 Temperature Pulse Rate 115 H 118 H 116 H Respiratory 20 18 19 Rate Blood Pressure 178/96 161/90 161/90 Blood Pressure [Right] O2 Sat by Pulse 96 94 94 Oximetry 10/16/19 10/16/19 10/16/19 22:30 22:46 23:00 Temperature Pulse Rate 116 H 111 H 108 H Respiratory 17 14 19 Rate Blood Pressure 161/90 161/90 157/82 Blood Pressure [Right] O2 Sat by Pulse 93 94 93 Oximetry 10/16/19 10/16/19 10/16/19 23:16 23:30 23:46 Temperature Pulse Rate 115 H 107 H 110 H Respiratory 17 18 15 Rate Blood Pressure 157/82 157/82 157/82 Blood Pressure [Right] O2 Sat by Pulse 95 95 95 Oximetry 10/17/19 10/17/19 10/17/19 00:00 00:16 00:18 Temperature Pulse Rate 106 H 109 H 111 H Respiratory 22 22 16 Rate Blood Pressure 168/96 168/96 168/96 Blood Pressure [Right] O2 Sat by Pulse 97 96 95 Oximetry 10/17/19 10/17/19 10/17/19 00:30 00:46 01:00 Temperature Pulse Rate 106 H 102 H 100 H Respiratory 16 17 18 Rate Blood Pressure 168/96 168/96 168/96 Blood Pressure [Right] O2 Sat by Pulse 96 96 95 Oximetry 10/17/19 10/17/19 10/17/19 01:16 01:30 01:46 Temperature Pulse Rate 99 H 101 H 93 H Respiratory 18 17 18 Rate Blood Pressure 172/87 172/87 172/87 Blood Pressure [Right] O2 Sat by Pulse 96 96 96 Oximetry 10/17/19 10/17/19 10/17/19 02:00 02:16 02:37 Temperature Pulse Rate 90 94 H Respiratory 16 22 19 Rate Blood Pressure 160/81 160/81 Blood Pressure [Right] O2 Sat by Pulse 96 96 Oximetry 10/17/19 10/17/19 10/17/19 02:46 03:00 03:16 Temperature Pulse Rate 103 H 79 91 H Respiratory 19 14 15 Rate Blood Pressure Blood Pressure [Right] O2 Sat by Pulse 94 95 96 Oximetry 10/17/19 10/17/19 10/17/19 03:30 03:46 04:00 Temperature Pulse Rate 88 94 H 83 Respiratory 19 17 19 Rate Blood Pressure Blood Pressure [Right] O2 Sat by Pulse 95 97 95 Oximetry 10/17/19 10/17/19 10/17/19 04:16 04:30 04:46 Temperature Pulse Rate 88 89 87 Respiratory 16 17 16 Rate Blood Pressure Blood Pressure [Right] O2 Sat by Pulse 96 97 95 Oximetry 10/17/19 10/17/19 10/17/19 05:00 05:16 05:30 Temperature Pulse Rate 85 88 83 Respiratory 17 10 L 16 Rate Blood Pressure Blood Pressure [Right] O2 Sat by Pulse 95 96 96 Oximetry 10/17/19 10/17/19 10/17/19 05:46 06:00 06:22 Temperature Pulse Rate 79 84 83 Respiratory 16 18 18 Rate Blood Pressure Blood Pressure 138/68 [Right] O2 Sat by Pulse 96 97 99 Oximetry 10/17/19 10/17/19 10/17/19 07:00 08:00 08:17 Temperature Pulse Rate 77 113 H 107 H Respiratory 15 20 20 Rate Blood Pressure 138/78 142/85 Blood Pressure 167/84 [Right] O2 Sat by Pulse 86 95 Oximetry 10/17/19 10/17/19 10/17/19 08:23 09:00 09:36 Temperature Pulse Rate 93 H 96 H Respiratory 19 18 16 Rate Blood Pressure 144/76 Blood Pressure 144/76 [Right] O2 Sat by Pulse 95 96 95 Oximetry 10/17/19 10/17/19 10/17/19 10:00 10:24 10:44 Temperature 98.0 F Pulse Rate 97 H 105 H Respiratory 16 19 Rate Blood Pressure 144/76 Blood Pressure 149/85 [Right] O2 Sat by Pulse 97 96 Oximetry ED Medical Decision Making - Lab Data Result diagrams: 10/16/19 13:54 10/16/19 13:54 Critical care attestation.: If time is entered above; I have spent that time in minutes in the direct care of this critically ill patient, excluding procedure time. ED Disposition Is pt being admited?: No
[2019-10-16] MEDS ORDERED: SODIUM CHLORIDE 0.9% 1000 ML 1,000 ML IV ONE (14:20)
[2019-10-16] MEDS ORDERED: ACETAMINOPHEN 500 MG TAB PO ONE (14:20)
[2019-10-16] MEDS ORDERED: IPRATROPIUM/ALBUTEROL SULFATE 3 ML AMPUL.NEB IH ONE (14:20)
[2019-10-16] MEDS ORDERED: DOXYCYCLINE 100 MG CAP PO ONE (14:20)
[2019-10-16] MEDS ORDERED: predniSONE 20 MG TAB PO ONE (14:20)
[2019-10-16 14:35] LABS: BUN/Creatinine Ratio 20; Blood Urea Nitrogen 22 mg/dL (9-20); Calcium 9.5 mg/dL (8.4-10.2); Hemolysis Index 7
[2019-10-16 14:49] LABS: Basophils % (Auto) 0.5 % (0.0-1.8); Eosinophils % (Auto) 0.1 % (0.0-4.3); Hematocrit 41.8 % (35.5-45.6); Lymphocytes # (Auto) 1.5 K/mm3 (1.2-5.4); Lymphocytes % (Auto) 16.4 % (13.4-35.0); Mean Corpuscular HGB Conc 34 % (32-34); Mean Corpuscular Volume 89 fl (84-94); Monocytes # (Auto) 0.7 K/mm3 (0.0-0.8); Monocytes % (Auto) 7.1 % (0.0-7.3); Platelet Count 318 K/mm3 (140-440); Red Blood Count 4.72 M/mm3 (3.65-5.03); Red Cell Distribution Width 15.3 % (13.2-15.2)
[2019-10-16 14:52] LABS: Bilirubin,Urine NEG (Negative); Blood,Urine NEG (Negative); Color,Urine Yellow (Yellow); Protein,Urine <15 mg/dL mg/dL (Negative); RBC,Urine < 1.0 /HPF (0.0-6.0); Urobilinogen,Urine < 2.0 mg/dL (<2.0)
[2019-10-16 14:52] LABS: Alanine Aminotransferase 69 units/L (7-56); Albumin 4.6 g/dL (3.9-5)
[2019-10-16 14:58] LABS: Benzodiazepines Screen,Urine PRESUMPTIVE NEGATIVE; Methadone Screen,Urine PRESUMPTIVE NEGATIVE; Opiate Screen,Urine PRESUMPTIVE NEGATIVE
--- NOTE | 2019-10-16 14:58 | XRay Report ---
CHEST PA AND LATERAL VIEWS INDICATION: cough. COMPARISON: 08/26/2019 FINDINGS: Support devices: None. Heart: Within normal limits. Lungs/Pleura: No acute pulmonary or pleural findings. Chronic osseous findings are stable. IMPRESSION: 1. No acute findings. Signer Name: Rafael Calderon MD Signed: 10/16/2019 2:53 PM Workstation Name: [id number]
[2019-10-16 14:59] LABS: WBC,Urine < 1.0 /HPF (0.0-6.0)
[2019-10-16] MEDS: LORazepam 2 MG TAB PO PRN ×2 (15:00→22:08)
[2019-10-16 15:09] LABS: Bilirubin,Direct < 0.2 mg/dL (0-0.2)
[2019-10-16 15:10] LABS: Amphetamine Screen,Urine PRESUMPTIVE POSITIVE; Cannabinoid Screen,Urine PRESUMPTIVE POSITIVE; Cocaine Screen,Urine PRESUMPTIVE POSITIVE
[2019-10-16] MEDS: DOXYCYCLINE 100 MG CAP PO SCH (21:13)
[2019-10-17] MEDS: DOXYCYCLINE 100 MG CAP PO SCH (00:13)
[2019-10-17 10:30] VITALS: BP 144/76
== END 2019-10-17 10:56 ==
LOC: ED 13:30
DX: S51.812A Laceration without foreign body of left forearm, initial encounter (principal); R45.851 Suicidal ideations; F32.9 Major depressive disorder, single episode, unspecified; I10 Essential (primary) hypertension; E11.9 Type 2 diabetes mellitus without complications; F20.9 Schizophrenia, unspecified; G20 Parkinson's disease; J44.1 Chronic obstructive pulmonary disease with (acute) exacerbation; F17.200 Nicotine dependence, unspecified, uncomplicated; F12.10 Cannabis abuse, uncomplicated; F14.10 Cocaine abuse, uncomplicated; F15.10 Other stimulant abuse, uncomplicated; Z87.898 Personal history of other specified conditions; Z79.899 Other long term (current) drug therapy; X78.9XXA Intentional self-harm by unspecified sharp object, initial encounter; Y93.89 Activity, other specified; Y99.8 Other external cause status; Y92.89 Other specified places as the place of occurrence of the external cause
CPT/HCPCS: 36415; 71046; 80048; 80076; 80307; 81001; 82962; 85025; 90471; 90715; 94640; 99285; J7030; J7512; 80320; 96360; A6250; G0480

== ENCOUNTER 2019-12-04 16:13 | Emergency (ER) | payer MEDICARE ==
[2019-12-04] MEDS ORDERED: ASPIRIN 325 MG TAB PO ONE (16:28)
--- NOTE | 2019-12-04 16:55 | XRay Report ---
CHEST 1 VIEW INDICATION / CLINICAL INFORMATION: MAIN: Chest Pain; SOB X 1 WEEK WITH BILATERAL PEDAL EDEMA X1 WEEK. OCC CHEST PAIN. COMPARISON: 10/16/2019 FINDINGS: SUPPORT DEVICES: None. HEART / MEDIASTINUM: No significant abnormality. LUNGS / PLEURA: No significant pulmonary or pleural abnormality. No pneumothorax. ADDITIONAL FINDINGS: No significant additional findings. IMPRESSION: No acute pulmonary or pleural abnormality. No change from 10/16/2019 Signer Name: Jamari Elmore MD FACR Signed: 12/04/2019 4:51 PM Workstation Name: [id number]
[2019-12-04 17:53] LABS: Basophils % (Auto) 0.9 % (0.0-1.8); Eosinophils # (Auto) 0.1 K/mm3 (0.0-0.4); Eosinophils % (Auto) 2.7 % (0.0-4.3); Hematocrit 37.4 % (35.5-45.6); Hemoglobin 12.4 gm/dl (11.8-15.2); Lymphocytes # (Auto) 1.3 K/mm3 (1.2-5.4); Lymphocytes % (Auto) 26.5 % (13.4-35.0); Mean Corpuscular HGB Conc 33 % (32-34); Mean Corpuscular Volume 94 fl (84-94); Monocytes # (Auto) 0.6 K/mm3 (0.0-0.8); Platelet Count 236 K/mm3 (140-440); Red Cell Distribution Width 18.3 % (13.2-15.2)
[2019-12-04 18:17] LABS: BUN/Creatinine Ratio 24; Blood Urea Nitrogen 31 mg/dL (9-20); Calcium 9.2 mg/dL (8.4-10.2); Hemolysis Index 8
[2019-12-04] MEDS ORDERED: FUROSEMIDE 40 MG/4 ML INJ IV ONE (22:02)
--- NOTE | 2019-12-04 22:06 | Emergency Department Report ---
ED Shortness of Breath HPI - General Chief Complaint: Dyspnea/Respdistress Stated Complaint: FOOT/ANKLE PAIN/SOB Time Seen by Provider: 12/04/19 21:57 Source: patient Mode of arrival: Ambulatory Limitations: No Limitations - History of Present Illness Initial Comments: Patient is 59 years old male with history of hypertension, diabetes and schizophrenia, patient presented to the ER complaining of shortness of breath for the last 3 days associated with bilateral lower extremity swelling. Patient denied any fever or chills. Patient also denied any chest pain at this moment. He stated that he occasionally have some chest pain mainly to the left side with some radiation to the left shoulder. MD Complaint: shortness of breath -: days(s) (3) - Related Data Home Medications Medication Instructions Recorded Confirmed Last Taken Finasteride 5 mg PO DAILY 06/27/19 10/17/19 Unknown Losartan [Cozaar] 50 mg PO QDAY 06/27/19 10/17/19 Unknown Tamsulosin [Flomax] 0.4 mg PO HS 06/27/19 10/17/19 Unknown Ferrous Sulfate 325 mg PO DAILY 10/17/19 10/17/19 Unknown Metoprolol 25 mg PO DAILY 10/17/19 10/17/19 Unknown amLODIPine 5 mg PO DAILY 10/17/19 10/17/19 Unknown Iron 325 mg PO DAILY 10/18/19 10/18/19 Unknown Metformin HCl [metFORMIN] 1,000 mg PO DAILY 10/18/19 10/18/19 Unknown Previous Rx's Medication Instructions Recorded Last Taken Type Escitalopram [Lexapro] 20 mg PO DAILY #60 tablet 10/25/19 Unknown Rx Nicotine [Habitrol] 21 mg TD QDAY #30 patch 10/25/19 Unknown Rx QUEtiapine [SEROquel] 100 mg PO QHS #30 tablet 10/25/19 Unknown Rx busPIRone [Buspar] 20 mg PO BID #120 tablet 10/25/19 Unknown Rx carBAMazepine [TEGretol] 200 mg PO BID #60 tablet 10/25/19 Unknown Rx Allergies Allergy/AdvReac Type Severity Reaction Status Date / Time No Known Allergies Allergy Unverified 06/26/19 19:06 ED Review of Systems ROS: Stated complaint: FOOT/ANKLE PAIN/SOB Other details as noted in HPI Comment: All other systems reviewed and negative Constitutional: denies: chills, fever Respiratory: shortness of breath, SOB with exertion, SOB at rest. denies: cough, wheezing Cardiovascular: chest pain (Occasionally.) Gastrointestinal: denies: abdominal pain, nausea, vomiting Musculoskeletal: denies: back pain Neurological: denies: headache, weakness, numbness, paresthesias, confusion, abnormal gait ED Past Medical Hx - Past Medical History Hx Hypertension: Yes Hx Congestive Heart Failure: No Hx Diabetes: Yes Hx Liver Disease: Yes (Hep B and C) Hx Arthritis: Yes Hx Seizures: Yes Hx Psychiatric Treatment: Yes (schizophrenia, bipolar, depression) Hx Asthma: Yes Hx COPD: Yes Hx Dementia: Yes Additional medical history: parkinsons, prostate cancer, OA, fused vertebra, - Surgical History Hx Cholecystectomy: Yes Hx Appendectomy: No Additional Surgical History: spinal fusion - Social History Smoking Status: Current Every Day Smoker Substance Use Type: None - Medications Home Medications: Home Medications Medication Instructions Recorded Confirmed Last Taken Type Finasteride 5 mg PO DAILY 06/27/19 10/17/19 Unknown History Losartan [Cozaar] 50 mg PO QDAY 06/27/19 10/17/19 Unknown History Tamsulosin [Flomax] 0.4 mg PO HS 06/27/19 10/17/19 Unknown History Ferrous Sulfate 325 mg PO DAILY 10/17/19 10/17/19 Unknown History Metoprolol 25 mg PO DAILY 10/17/19 10/17/19 Unknown History amLODIPine 5 mg PO DAILY 10/17/19 10/17/19 Unknown History Iron 325 mg PO DAILY 10/18/19 10/18/19 Unknown History Metformin HCl [metFORMIN] 1,000 mg PO DAILY 10/18/19 10/18/19 Unknown History Escitalopram [Lexapro] 20 mg PO DAILY #60 tablet 10/25/19 Unknown Rx Nicotine [Habitrol] 21 mg TD QDAY #30 patch 10/25/19 Unknown Rx QUEtiapine [SEROquel] 100 mg PO QHS #30 tablet 10/25/19 Unknown Rx busPIRone [Buspar] 20 mg PO BID #120 tablet 10/25/19 Unknown Rx carBAMazepine [TEGretol] 200 mg PO BID #60 tablet 10/25/19 Unknown Rx ED Physical Exam - General Limitations: No Limitations General appearance: alert, in no apparent distress - Head Head exam: Present: atraumatic, normocephalic, normal inspection - ENT ENT exam: Present: normal exam, normal orophraynx, mucous membranes moist - Neck Neck exam: Present: normal inspection, full ROM. Absent: tenderness, meningismus, lymphadenopathy, thyromegaly - Respiratory Respiratory exam: Present: rales, rhonchi. Absent: respiratory distress, wheezes - Cardiovascular Cardiovascular Exam: Present: regular rate, normal rhythm, normal heart sounds - GI/Abdominal GI/Abdominal exam: Present: soft, normal bowel sounds. Absent: distended, ten derness, guarding, rebound, rigid, organomegaly, mass, bruit, pulsatile mass, hernia - Extremities Exam Extremities exam: Present: normal inspection, full ROM, normal capillary refill, pedal edema. Absent: calf tenderness - Back Exam Back exam: Present: normal inspection, full ROM - Neurological Exam Neurological exam: Present: alert, oriented X3, CN II-XII intact - Psychiatric Psychiatric exam: Present: normal mood. Absent: homicidal ideation, suicidal ideation - Skin Skin exam: Present: warm, intact, normal color ED Course Vital Signs 12/04/19 12/04/19 12/04/19 16:30 22:00 23:00 Temperature 97.6 F 97.6 F Pulse Rate 70 68 64 Respiratory 18 19 16 Rate Blood Pressure 136/69 160/79 Blood Pressure 136/69 168/96 [Right] O2 Sat by Pulse 95 96 97 Oximetry 12/05/19 12/05/19 00:01 01:01 Temperature Pulse Rate 68 96 H Respiratory 16 18 Rate Blood Pressure 146/71 158/92 Blood Pressure [Right] O2 Sat by Pulse 92 93 Oximetry ED Medical Decision Making - Lab Data Result diagrams: 12/04/19 16:48 12/04/19 16:48 - EKG Data -: EKG Interpreted by Ne EKG shows normal: sinus rhythm Rate: normal - EKG Data Interpretation: no acute changes - Radiology Data Radiology results: report reviewed - Medical Decision Making Patient is 59 years old male with history of hypertension, diabetes and schizophrenia, patient presented to the ER complaining of shortness of breath for the last 3 days associated with bilateral lower extremity swelling. Patient denied any fever or chills. Patient also denied any chest pain at this moment. He stated that he occasionally have some chest pain mainly to the left side with some radiation to the left shoulder. EKG is unremarkable. Labs reviewed and is negative including 3 sets of troponin. CTA chest is negative for pulmonary embolism. Patient received Lasix 40 mg with good urine output. Patient advised to follow-up with his primary care physician in the next 2 to 3 days and to return to the ER if he develop any new symptoms. Critical care attestation.: If time is entered above; I have spent that time in minutes in the direct care of this critically ill patient, excluding procedure time. ED Disposition Clinical Impression: Shortness of breath, Peripheral edema Disposition: - TO HOME OR SELFCARE Is pt being admited?: No Condition: Stable Instructions: Dyspnea (ED), Leg Edema (ED) Referrals: PRIMARY CARE, [Primary Care Provider] - 3-5 Days
[2019-12-04 23:33] LABS: INR 1.01 (0.87-1.13); Partial Thromboplastin Time 29.1 Sec. (24.2-36.6)
--- NOTE | 2019-12-05 01:12 | Cat Scan Report ---
CTA CHEST WITH IV CONTRAST INDICATION: Shortness of breath and chest pain for one week TECHNIQUE: Axial CT images were obtained through the chest after injection of IV contrast. Coronal oblique 2-D reconstruction images were produced. 3 plane MIP reconstruction images were produced at an [employer] workstation. All CTs at this facility utilize dose reduction techniques including automated expos ure control, iterative reconstruction and weight based dosing when appropriate to reduce patient radi ation dose to as low as reasonable achievable. COMPARISON: Chest radiograph, 12/04/2019 FINDINGS: No filling defects are identified within the central or segmental pulmonary arteries to suggest pulmo nary embolism. The heart is normal in size. The abdominal aorta appears normal in caliber. Evaluation of the lung parenchyma demonstrates a small patchy groundglass focus in the right middle lobe measur ing 2 cm. There is left lower lobe atelectasis. No large consolidation or pleural effusion is identif ied. Limited imaging of the upper abdomen demonstrates no evidence of acute abnormality. A single calcifie d gallstone is noted. Evaluation of bony structures demonstrates no evidence of acute bony abnormality. There are moderatel y advanced degenerative changes throughout the thoracic spine. Evaluation of soft tissue structures d emonstrates no acute soft tissue abnormality. IMPRESSION: 1. No evidence of pulmonary embolism. 2. Minimal patchy density in the right middle lobe. While this is a small subtle finding, it could po tentially represent a small focus of infectious or inflammatory process. 3. Additional nonacute findings as above. Signer Name: Margaret López MD Signed: 12/05/2019 1:08 AM Workstation Name: [id number]
[2019-12-05 04:02] VITALS: BP 139/60
== END 2019-12-05 03:15 | disposition home or self-care (01) ==
LOC: ED 16:13
DX: R06.02 Shortness of breath (principal); R60.9 Edema, unspecified; I10 Essential (primary) hypertension; E11.9 Type 2 diabetes mellitus without complications; M19.90 Unspecified osteoarthritis, unspecified site; F25.0 Schizoaffective disorder, bipolar type; F03.90 Unspecified dementia, unspecified severity, without behavioral disturbance, psychotic disturbance, mood disturbance, and anxiety; J44.9 Chronic obstructive pulmonary disease, unspecified; F17.200 Nicotine dependence, unspecified, uncomplicated; Z86.69 Personal history of other diseases of the nervous system and sense organs; Z86.73 Personal history of transient ischemic attack (TIA), and cerebral infarction without residual deficits; Z90.49 Acquired absence of other specified parts of digestive tract; Z79.899 Other long term (current) drug therapy; Z98.890 Other specified postprocedural states
CPT/HCPCS: 36415; 71045; 71275; 80048; 83880; 84484; 85025; 85379; 85610; 85730; 93005; 96374; 99285; J1940; Q9967